=== PATIENT | male | born 1980 | race Two or more races ===

== ENCOUNTER 2018-05-09 04:25 | Emergency (ER) | payer SELFPAY ==
[~2018-05-09] VITALS: Ht 188 cm; Wt 83.9 kg
[2018-05-09 04:42] VITALS: BP 126/90
[2018-05-09] MEDS: ACETAMINOPHEN 325 MG TAB PO ONE (05:00)
== END 2018-05-09 07:38 | disposition home or self-care (01) ==
LOC: ER 04:30
CPT/HCPCS: 73030